=== PATIENT | male | born 1960 | race Caucasian/White ===

== ENCOUNTER 2020-04-20 19:27 | Outpatient (CLI) | payer OTHER, SELFPAY ==
--- NOTE | ~2020-04-20 | MR_ITS ---
EXAMINATION: MR cervical spine wo con DATE: 04/20/2020 20:59 INDICATION: Myelopathy. TECHNIQUE: Magnetic resonance imaging (MRI) of the cervical spine was performed without intravenous c ontrast. Sequences included sagittal T2-weighted FSE, sagittal STIR FSE, sagittal T1-weighted FSE, ax ial MERGE, and axial T2-weighted FSE. COMPARISON: Cervical spine radiographs 01/19/2015 FINDINGS: There is 4 degrees levocurvature of cervical spine. Vertebral body heights are normal. Ther e is mildly decreased disc height at C5-C6 and C6-C7. There is increased T2-weighted signal intensity in the spinal cord on the right at C6-C7, consistent with myelopathy. The following disc levels are specifically discussed: C2-C3: There is a right central protrusion. There is severe right uncovertebral joint osteoarthritis. There is severe right and mild left facet joint osteoarthritis. There is severe right neural foramin al stenosis. There is no central canal stenosis. C3-C4: The disc is bulging. There is moderate right and mild left uncovertebral joint osteoarthritis. There is moderate bilateral facet joint osteoarthritis. There is moderate right and mild left neural foraminal stenosis. There is mild central canal stenosis. C4-C5: The disc is bulging. There is mild bilateral uncovertebral joint osteoarthritis. There is mild bilateral facet joint osteoarthritis. There is moderate right and mild left neural foraminal stenosi s. There is mild central canal stenosis with ventral indentation of spinal cord. C5-C6: The disc is bulging. There is severe bilateral uncovertebral joint osteoarthritis. There is mo derate bilateral facet joint osteoarthritis. There is moderate bilateral neural foraminal stenosis. T here is mild central canal stenosis with ventral indentation of spinal cord. C6-C7: The disc is bulging. There is severe bilateral uncovertebral joint osteoarthritis. There is mi ld right facet joint osteoarthritis. There is moderate bilateral neural foraminal stenosis. There is moderate central canal stenosis with ventral and dorsal indentation of spinal cord. C7-T1: The disc does not extend beyond the endplate margin. There is mild bilateral uncovertebral cordelia nt osteoarthritis. There is severe bilateral facet joint osteoarthritis. There is moderate right and mild left neural foraminal stenosis. There is no central canal stenosis. IMPRESSION: 1. Myelopathy at C6-C7. 2. Moderate cervical spondylosis. Reviewed, dictated and finalized at location A.
--- NOTE | ~2020-04-20 | MR_ITS ---
EXAMINATION: MR brain/brain stem wo con DATE: 04/20/2020 20:40 INDICATION: Myelopathy. Left facial numbness. Loss of taste. TECHNIQUE: Magnetic resonance imaging (MRI) of the brain and brainstem was performed without intraven ous contrast. Sequences included sagittal and axial T1-weighted FSE, axial diffusion-weighted FS EPI, axial T2*-weighted GRE, axial T2-weighted FLAIR Propeller, and axial T2-weighted Propeller. Apparent diffusion coefficient (ADC) maps were created. COMPARISON: None. FINDINGS: There are areas of nonspecific increased T2-weighted signal intensity in the cerebral white matter, which is within normal limits for the patient's age. There is no intracranial hemorrhage, ac arben infarction, or abnormal intracranial mass lesion. The ventricles are normal in size. There is mil d mucosal thickening in the paranasal sinuses. The orbits are normal. The mastoid air cells are michelle l. IMPRESSION: 1. Normal brain. Reviewed, dictated and finalized at location A. IMPRESSION: 1. Normal brain.
== END 2020-04-20 19:28 | disposition home or self-care (01) ==
PROVIDERS: PCP Family Medicine; Visit Provider Psychiatry & Neurology Neurology
DX: G99.2 Myelopathy in diseases classified elsewhere (principal); R20.2 Paresthesia of skin; M47.892 Other spondylosis, cervical region
CPT/HCPCS: 70551; 72141